=== PATIENT | female | born 1995 | race Caucasian/White ===

== ENCOUNTER 2018-11-12 00:15 | Outpatient (CLI) ==
[2015-08-29 11:11] VITALS: BMI 27.1
== END 2018-11-12 00:31 | disposition short-term general hospital (02) ==
LOC: AMBL 00:15
PROVIDERS: ATTEND Family Medicine
DX: R56.9 Unspecified convulsions (principal); R41.0 Disorientation, unspecified; R11.2 Nausea with vomiting, unspecified; R00.0 Tachycardia, unspecified; O14.95 Unspecified pre-eclampsia, complicating the puerperium; S01.512A Laceration without foreign body of oral cavity, initial encounter; Z98.890 Other specified postprocedural states